=== PATIENT | male | born 1970 | race Caucasian/White ===

== ENCOUNTER 2020-10-24 18:18 | Emergency (ER) | payer OTHER, SELFPAY ==
[2020-10-24 18:19] VITALS: BP 157/95; PULSE 101; RESP 15; TEMP 36.8; O2SAT 96; BMI 28.7
--- NOTE | 2020-10-24 18:40 | RAD_ITS ---
INDICATION: hand pain EXAMINATION/TECHNIQUE: X-RAY - RIGHT XR Hand Min 3 Views COMPARISON: None. FINDINGS: No acute fracture or malalignment. No blastic or lytic lesions. No degenerative changes are seen. The soft tissues are unremarkable. RAD/Hand Min 3 Views IMPRESSION: No acute radiographic abnormalities. Electronically Signed: Silvestre Bean MD at 18:55 EDT Tel , Service support ,
--- NOTE | 2020-10-24 18:40 | ED.VIS.GEN ---
History of Present Illness Chief Complaint: Upper Extremity Injury Informant: Patient Narrative: 50-year-old male presenting with right hand pain. He states is in his distal fourth and fifth digits. He says they are erythematous and tender. He states he was using a lady that work and his glove got part on some twisting mechanism which twisted his hand around. He did not heard a pop or click. He is able to bend his fingers. He states it hurts worse to straighten them. There is no obvious deformity that he notes. No lacerations or abrasions. Past Medical History - Allergies and Home Meds Allergies/Adverse Reactions: Allergies No Known Allergies Allergy (Verified 10/24/20 18:19) Primary Care Physician: [facility] [Provider Group] [facility] Doctor,Out of [NON-STAFF] - Prior records reviewed: Yes Past Medical History: - - No significant medical history Surgical History: noncontributory Lives: Alone Smoking Status: Never smoker Alcohol: None Drugs: None Review of Systems General: Denies: Chills, Fever, Sweats Eyes: Denies: Visual changes - bilaterally, Diplopia ENT: Denies: Rhinorrhea, Sore throat Cardiovascular: Denies: Chest pain, Palpitations Respiratory: Denies: Dyspnea, Cough, Dyspnea on exertion Gastrointestinal: Denies: Abdominal pain, Nausea, Vomiting, Diarrhea, Melena, Hematochezia Genitourinary: Denies: Dysuria, Hematuria, Frequency Musculoskeletal: Reports: - - Pain in the distal fourth and fifth digits Skin: Denies: Rash, Abscess Neurological: Denies: Headache, Weakness Physical Exam Vital Signs/Narrative: Vital Signs Temp Pulse Resp BP Pulse Ox 10/24/20 18:19 98.3 F 101 H 15 157/95 H 96 General: Well nourished, Well developed, No Acute Distress Head: Normocephalic, Atraumatic Eyes: Perrl, EOMI ENT: Moist mucous membranes, No rhinorrhea Neck: Supple, Nontender Cardiovascular: Regular rate, Regular rhythm Respiratory: No distress, CTA bilaterally Rectal: Deferred Extremities: - - Tenderness to palpation over right distal fourth and fifth digits. There is no obvious deformity. He has flexion extension decreased in the DIPs greater than the PIPs. No obvious deformity. Brisk cap refill to all 5 fingers. Neurovascular intact. Skin: - - With the mid to the distal fourth and fifth digits including the nailbeds. No subungual hematomas.. Negative for: No rash, Cyanosis Neurological: Alert, Oriented x3 Psychological: Normal affect, Normal Mood Diagnostic/Tx/Re-eval Clinical Impression(s) from Imaging Studies Hand X-Ray 10/24/20 18:40 IMPRESSION: No acute radiographic abnormalities. Electronically Signed: Silvestre Bean MD at 18:55 EDT Tel , Service support , - Medical Decision Making Patient has right hand pain mostly in the distal right fourth and fifth digits. He has limited range of motion secondary to pain. There is no obvious deformities. Patient had 3 views of the right hand which demonstrate no acute fracture or subluxation as interpreted by myself and radiology does agree. Patient counseled on ice and limited use of this. His Worker's Comp. paperwork was filled out. Restrictions were given for limited use of right hand. Patient stable for discharge this time. Impression: 1. Right hand sprain ED Disposition - Plan for ED Patient: Disposition: Home or Assisted Living Instructions: ED Hand Sprain Referrals: [facility] [Provider Group] [facility] Doctor,Out of [NON-STAFF] -
[2020-10-24 19:25] VITALS: BP 116/91; RESP 18; O2SAT 98
== END 2020-10-24 19:34 | disposition home or self-care (01) ==
PROVIDERS: Emergency Provider Student in an Organized Health Care Education/Training Program
DX: S63.91XA Sprain of unspecified part of right wrist and hand, initial encounter (principal); X50.1XXA Overexertion from prolonged static or awkward postures, initial encounter; Y93.89 Activity, other specified; Y92.89 Other specified places as the place of occurrence of the external cause; Y99.0 Civilian activity done for income or pay
CPT/HCPCS: 73130; 99282